=== PATIENT | female | born 1945 | race Asian ===

== ENCOUNTER 2019-08-21 13:57 | Emergency (ER) | payer OTHER ==
[~2019-08-21] VITALS: Ht 165.1 cm; Wt 54.4 kg
[2019-08-21 14:07] VITALS: Ht 165.1 cm; Wt 54.4 kg
[2019-08-21 15:09] LABS: BASOPHIL % 0.8 % (0-2); PLATELET COUNT 379 x10^3mcL (130-400)
[2019-08-21 15:18] LABS: CARBON DIOXIDE 30.2 mmol/L (21-32); CHLORIDE SERUM 102 mmol/L (98-107); GLUCOSE SERUM 149 mg/dL (74-106); POTASSIUM SERUM 3.9 mmol/L (3.5-5.1); SODIUM SERUM 140 mmol/L (136-145)
[2019-08-21 15:24] LABS: ALBUMIN 3.5 g/dL (3.4-5.0); ALKALINE PHOSPHATASE 80 U/L (46-116); ALT/SGPT 25 U/L (14-59); AST/SGOT 26 U/L (15-37); BILIRUBIN TOTAL 0.22 mg/dL (0.20-1.00); TOTAL PROTEIN, SERUM 7.3 g/dL (6.4-8.2)
[2019-08-21 16:07] LABS: UA SPECIFIC GRAVITY 1.025 (1.005-1.035); microscopic required? YES; urine erythrocyte 3+ (NEGATIVE)
[2019-08-21 20:48] VITALS: BP 141/73
== END 2019-08-21 20:48 | disposition short-term general hospital (02) ==
LOC: ED 13:57
PROVIDERS: Emergency Medicine
DX: R31.0 Gross hematuria (principal); N39.0 Urinary tract infection, site not specified
CPT/HCPCS: J0696; J2405; J7030; J7060; Q0092